=== PATIENT | female | born 1980 | race Caucasian/White ===

== ENCOUNTER 2018-12-14 11:03 | Emergency (ER) | payer OTHER ==
[~2018-12-14] VITALS: Ht 167.6 cm; Wt 74.8 kg
[~2018-12-14 11:03] MED LIST: ACETAMINOPHEN325 M1 PO; ALEVE220 MG PO; AMOXICILLIN 50500 M1 PO; CIPROFLOXACIN500 M1 PO; IBUPROFEN 600600 M1 PO; IBUPROFEN 800800 M1 PO; PERCOCET 5-3251 EACH PO; PYRIDIUM200 MG PO; VALTREX 500 MG500 M1 PO; VICODIN 5-5001 EACH PO
[2018-12-14] MEDS ORDERED: NABUMETONE 750750 M1 PO (12:24)
[2018-12-14 12:41] VITALS: BP 123/84
== END 2018-12-14 12:42 | disposition home or self-care (01) ==
LOC: M.ERS 11:03
DX: M19.072 Primary osteoarthritis, left ankle and foot (principal); G43.909 Migraine, unspecified, not intractable, without status migrainosus; Z98.890 Other specified postprocedural states

== ENCOUNTER → 2019-03-23 | Outpatient (CLI) | payer OTHER ==
[~2019-03-23] MED LIST changes: +NABUMETONE 750750 M1 PO
== END ==
LOC: M.CT 03-20 07:55
DX: Z12.31 Encounter for screening mammogram for malignant neoplasm of breast (principal); G43.909 Migraine, unspecified, not intractable, without status migrainosus

== ENCOUNTER → 2019-04-04 | Outpatient (CLI) | payer OTHER | LOC: M.ULTRA 14:47 | DX: R92.8 Other abnormal and inconclusive findings on diagnostic imaging of breast (principal) ==

== ENCOUNTER 2019-05-28 00:54 | Emergency (ER) | payer OTHER ==
[~2019-05-28] VITALS: Ht 157.5 cm; Wt 65.8 kg
[2019-05-28 01:20] LABS: URINE BILIRUBIN NEGATIVE (Negative); URINE BLOOD NEGATIVE (Negative); URINE CLARITY CLEAR; URINE COLOR STRAW; URINE GLUCOSE-RANDOM NEGATIVE (Negative); URINE KETONES NEGATIVE (Negative); URINE LEUKOCYTES-REFLEX NEGATIVE (Negative); URINE NITRITE-REFLEX NEGATIVE (Negative); URINE PROTEIN NEGATIVE (Negative); URINE SPECIFIC GRAVITY 1.015 (1.005-1.030); URINE UROBILINOGEN 0.2 E.U./dl (0.2-1.0)
[2019-05-28 02:07] LABS: ABSOLUTE LYMPHOCYTES 1.2 thou/uL (0.8-5.3); ABSOLUTE MONOCYTES 0.8 thou/uL (0.0-1.2); BASOPHILS 0.6 %; EOSINOPHILS 0.7 %; HEMATOCRIT 39.7 % (37.0-47.0); HEMOGLOBIN 13.7 gm/dL (12.0-15.0); LYMPHOCYTES 23.7 %; MCH 31.8 pg (26.0-34.0); MCHC 34.5 g/dL (28.0-37.0); MCV 92.3 fL (80.0-100.0); MONOCYTES 15.2 %; MPV 9.4 fl. (7.2-11.1); NUCLEATED RBCS 0 /100WBC; PLATELET COUNT* 206 thou/uL (150-400); POLYS 59.8 %; RBC 4.31 mil/uL (4.20-5.00); WBC 5.1 thou/uL (4.0-11.0)
[2019-05-28 02:09] LABS: CALCIUM 8.3 mg/dL (8.5-10.1); CREATININE 0.7 mg/dL (0.6-1.3); POTASSIUM 4.1 mmol/L (3.5-5.1)
[2019-05-28 02:14] LABS: ALBUMIN 3.7 g/dL (3.4-5.0); TOTAL BILIRUBIN 0.2 mg/dL (<0.1-1.0); TOTAL PROTEIN 7.1 g/dL (6.4-8.2)
[2019-05-28] MEDS ORDERED: IBUPROFEN 800800 MG PO (02:31)
[2019-05-28] MEDS ORDERED: DIAZEPAM 5 MG5 M1 PO (02:31)
[2019-05-28] MEDS ORDERED: MEDROLDOSEPACK PO (02:31)
[2019-05-28 02:41] VITALS: BP 122/61
== END 2019-05-28 02:41 | disposition home or self-care (01) ==
LOC: M.ERS 00:54
PROVIDERS: Personal Emergency Response Attendant
DX: M54.5 Low back pain (principal); G43.909 Migraine, unspecified, not intractable, without status migrainosus; Z98.51 Tubal ligation status

== ENCOUNTER → 2020-05-28 | Outpatient (CLI) | payer OTHER ==
[~2020-05-28] MED LIST changes: +DIAZEPAM 5 MG5 M1 PO; +IBUPROFEN 800800 MG PO; +MEDROLDOSEPACK PO
== END ==
LOC: M.RAD 15:31
PROVIDERS: ATTEND Nurse Practitioner Family
DX: N63.12 Unspecified lump in the right breast, upper inner quadrant (principal); N64.4 Mastodynia

== ENCOUNTER 2020-07-25 18:48 | Emergency (ER) | payer OTHER ==
[~2020-07-25] VITALS: Ht 162.6 cm; Wt 68.0 kg
[2020-07-25 19:04] LABS: URINE BILIRUBIN NEGATIVE (Negative); URINE BLOOD NEGATIVE (Negative); URINE CLARITY CLEAR; URINE COLOR YELLOW; URINE GLUCOSE-RANDOM NEGATIVE (Negative); URINE KETONES NEGATIVE (Negative); URINE LEUKOCYTES NEGATIVE (Negative); URINE NITRITE NEGATIVE (Negative); URINE PROTEIN NEGATIVE (Negative); URINE SPECIFIC GRAVITY 1.015 (1.005-1.030); URINE UROBILINOGEN 0.2 E.U./dl (0.2-1.0)
[2020-07-25 19:27] LABS: ABSOLUTE BASOPHILS 0.1 thou/uL (0.0-0.2); ABSOLUTE EOSINOPHILS 0.5 thou/uL (0.0-0.7); ABSOLUTE LYMPHOCYTES 3.7 thou/uL (0.8-5.3); ABSOLUTE MONOCYTES 0.7 thou/uL (0.0-1.2); BASOPHILS 0.7 %; EOSINOPHILS 5.2 %; HEMATOCRIT 38.1 % (37.0-47.0); HEMOGLOBIN 13.1 gm/dL (12.0-15.0); LYMPHOCYTES 41.5 %; MCH 31.7 pg (26.0-34.0); MCHC 34.3 g/dL (28.0-37.0); MCV 92.5 fL (80.0-100.0); MONOCYTES 8.2 %; MPV 8.4 fl. (7.2-11.1); NUCLEATED RBCS 0 /100WBC; PLATELET COUNT* 261 thou/uL (150-400); POLYS 44.4 %; RBC 4.12 mil/uL (4.20-5.00); RDW-CV 12.8 % (10.5-14.5)
[2020-07-25 19:36] LABS: CALCIUM 8.5 mg/dL (8.5-10.1); CREATININE 0.7 mg/dL (0.6-1.3); POTASSIUM 3.7 mmol/L (3.5-5.1)
[2020-07-25 19:40] LABS: ALBUMIN 3.9 g/dL (3.4-5.0); TOTAL BILIRUBIN 0.3 mg/dL (<0.1-1.0); TOTAL PROTEIN 7.7 g/dL (6.4-8.2)
[2020-07-25] MEDS ORDERED: ROBAXIN 750 MG750 MG PO (20:48)
[2020-07-25 21:07] VITALS: BP 116/75
== END 2020-07-25 21:07 | disposition home or self-care (01) ==
LOC: M.ERS 18:48
PROVIDERS: Nurse Practitioner Family
DX: R10.11 Right upper quadrant pain (principal); R10.13 Epigastric pain; G43.909 Migraine, unspecified, not intractable, without status migrainosus; Z98.51 Tubal ligation status